=== PATIENT | female | born 1980 ===

== ENCOUNTER 2019-08-23 16:38 | Observation (INO) ==
[2019-08-23] MEDS ORDERED: *HR* HYDROmorphone (PF) 1 MG/ML SYRINGE IVP ONE ×2 (17:04→18:54)
[2019-08-23] MEDS ORDERED: Gadolinium Contrast Agent (WT Based) IV PRN (18:56)
[2019-08-23 19:59] LABS: Basophils % 0.3 %; Eosinophils # 0.2 K/mcL (0.0-0.6); Eosinophils % 1.9 %; Hematocrit 39.7 % (35.3-44.9); Hemoglobin 12.9 g/dL (11.5-15.4); Immature Granulocytes % 0.5 % (0-4); Lymphocytes # 3.2 K/mcL (0.6-4.6); Lymphocytes % 27.6 %; Mean Corpuscular HGB Conc 32.5 g/dL (31.6-35.5); Mean Corpuscular Hemoglobin 32.1 pg (28.0-33.3); Mean Corpuscular Volume 98.8 fL (83.0-100.0); Mean Platelet Volume 12.7 fL (9.4-12.4); Monocytes # 0.7 K/mcL (0.0-1.3); Monocytes % 5.8 %; Neutrophils # 7.3 K/mcL (1.6-8.9); Platelet Count 157 K/mcL (140-400); Red Blood Count 4.02 M/mcL (3.82-4.97); Red Cell Distribution Width 14.1 % (11.5-14.5); Segmented Neutrophils % 63.9 %; White Blood Count 11.5 K/mcL (4.3-11.1)
[2019-08-23 20:19] LABS: BUN/Creatinine Ratio 21 (6-26); Blood Urea Nitrogen 13 mg/dL (6-20); Calcium 9.8 mg/dL (8.6-10.3); Carbon Dioxide 28 mEq/L (23-29); Chloride 102 mEq/L (98-107); Glucose 215 mg/dL (70-105); Osmolality,Calculated 295 (280-300); Potassium 4.2 mEq/L (3.5-5.1); Sodium 139 mEq/L (136-145); eGFR For African Americans > 60 (> 60); eGFR For Non-African Americans > 60 (> 60)
[2019-08-23] MEDS ORDERED: diazePAM 10 MG/2 ML SYRINGE IVP ONE (21:14)
[2019-08-24] MEDS ORDERED: *HR* HYDROmorphone (PF) 1 MG/ML SYRINGE IVP PRN (05:34)
[2019-08-24 06:36] LABS: Bilirubin,Urine Small (Negative); Blood,Urine Negative (Negative); Clarity,Urine Cloudy (Clear); Color,Urine Dark Yellow (Yellow); Glucose,Urine (UA) 100 mg/dL (Normal); Ketones,Urine Negative (Negative); Leukocyte Esterase,Urine Moderate (Negative); Nitrite,Urine Negative (Negative); PH,Urine 5.5 pH Units (5.0-8.0); Protein,Urine Trace mg/dL (Neg-Trace); Specific Gravity,Urine > 1.030 (1.010-1.025); Urobilinogen,Urine Normal (Normal)
[2019-08-24 06:38] LABS: Bacteria,Urine Moderate per hpf (None-Few); Hyaline Casts,Urine Few per lpf (None-Few); Squamous Epithelial Cell,Urine Many per lpf (None-Few); WBC,Urine 15-30 per hpf (0-3)
[2019-08-24 06:47] LABS: Calcium Oxalate Crystals,Urine Present
[2019-08-24] MEDS ORDERED: *HR* Dextrose 50 % in Water (Syg) 50 ML SYRINGE IVP PRN (07:28)
[2019-08-24] MEDS ORDERED: D5% in Water 1,000 ML IVC PRN (07:28)
[2019-08-24] MEDS ORDERED: Dextrose Gel 15 GM/37.5 ML TUBE PO PRN ×2 (07:28)
[2019-08-24] MEDS ORDERED: Ondansetron 4 MG/2 ML VIAL IVP PRN (07:30)
[2019-08-24] MEDS ORDERED: Naloxone 0.4 MG/ML INJ IVP PRN (07:30)
[2019-08-24] MEDS: Aspirin Enteric Coated 81 MG Tablet PO SCH (08:53)
[2019-08-24] MEDS: Lisinopril 20 MG TABLET PO SCH (08:54)
[2019-08-24] MEDS: Cholecalciferol (D-3) 1,000 UNIT (25MCG) TABLET PO SCH (08:54)
[2019-08-24] MEDS: Metoprolol XL (24 HR) Succ 50 MG TAB.ER.24H PO SCH ×2 (08:54→20:49)
[2019-08-24] MEDS: Famotidine 20 MG TABLET PO SCH ×2 (08:54→16:23)
[2019-08-24] MEDS: amLODIPine 5 MG TABLET PO SCH (08:54)
[2019-08-24] MEDS: *HR* HYDROcodone/Acet 5/325 mg TABLET PO PRN ×2 (08:55→19:56)
[2019-08-24] MEDS: Insulin LISPRO 300 UNITS/3 ML VIAL SQ SCH ×4 (09:02→20:48)
[2019-08-24] MEDS: Orphenadrine 100 MG TABLET.ER PO SCH ×2 (12:55→20:49)
[2019-08-24] MEDS: *HR* HYDROmorphone (PF) 1 MG/ML SYRINGE IVP PRN ×2 (13:03→20:52)
[2019-08-24] MEDS: *HR* Heparin 5,000 UNIT/ML VIAL SQ SCH (16:23)
[2019-08-24] MEDS: Insulin DETEMIR 100 UNIT/ML X5UNITS SQ SCH (20:48)
[2019-08-24] MEDS: Divalproex (24 HR) 500 MG TABLET PO SCH (20:49)
[2019-08-24] MEDS: RisperiDAL 3 MG TABLET PO SCH (20:49)
[2019-08-24] MEDS: Nicotine 21 MG PATCH.TD24 TD SCH (21:32)
[2019-08-25] MEDS: *HR* Heparin 5,000 UNIT/ML VIAL SQ SCH ×2 (06:13→19:45)
[2019-08-25] MEDS: *HR* HYDROmorphone (PF) 1 MG/ML SYRINGE IVP PRN (06:54)
[2019-08-25] MEDS: Nicotine 21 MG PATCH.TD24 TD SCH (07:57)
[2019-08-25] MEDS: Aspirin Enteric Coated 81 MG Tablet PO SCH (07:58)
[2019-08-25] MEDS: Cholecalciferol (D-3) 1,000 UNIT (25MCG) TABLET PO SCH (07:58)
[2019-08-25] MEDS: Lisinopril 20 MG TABLET PO SCH (07:58)
[2019-08-25] MEDS: Famotidine 20 MG TABLET PO SCH ×2 (07:58→15:42)
[2019-08-25] MEDS: Orphenadrine 100 MG TABLET.ER PO SCH ×2 (07:58→19:46)
[2019-08-25] MEDS: Metoprolol XL (24 HR) Succ 50 MG TAB.ER.24H PO SCH ×2 (07:59→19:45)
[2019-08-25] MEDS: amLODIPine 5 MG TABLET PO SCH (07:59)
[2019-08-25] MEDS: LOXAPINE SUCCINATE 20 MG PO SCH (07:59)
[2019-08-25] MEDS: *HR* HYDROcodone/Acet 5/325 mg TABLET PO PRN ×2 (08:01→15:42)
[2019-08-25] MEDS: Insulin LISPRO 300 UNITS/3 ML VIAL SQ SCH ×7 (08:08→20:49)
[2019-08-25 11:46] LABS: Hematocrit 30.6 % (35.3-44.9); Hemoglobin 10.6 g/dL (11.5-15.4); Mean Corpuscular HGB Conc 34.6 g/dL (31.6-35.5); Mean Corpuscular Hemoglobin 32.4 pg (28.0-33.3); Mean Corpuscular Volume 93.6 fL (83.0-100.0); Mean Platelet Volume 13.3 fL (9.4-12.4); Platelet Count 121 K/mcL (140-400); Red Blood Count 3.27 M/mcL (3.82-4.97); Red Cell Distribution Width 14.6 % (11.5-14.5); White Blood Count 8.1 K/mcL (4.3-11.1)
[2019-08-25 12:06] LABS: Calcium 9.8 mg/dL (8.6-10.3); Potassium 4.4 mEq/L (3.5-5.1)
[2019-08-25] MEDS: 0.9 % Sodium Chloride 1,000 ML IVC SCH (12:37)
[2019-08-25] MEDS: Ibuprofen 600 MG TABLET PO PRN (17:58)
[2019-08-25] MEDS: RisperiDAL 3 MG TABLET PO SCH (19:45)
[2019-08-25] MEDS: Melatonin 3 MG TABLET PO SCH (19:46)
[2019-08-25] MEDS: Divalproex (24 HR) 500 MG TABLET PO SCH (19:46)
[2019-08-25] MEDS: Gabapentin 400 MG CAPSULE PO SCH (19:46)
[2019-08-25] MEDS: Insulin DETEMIR 100 UNIT/ML X5UNITS SQ SCH (20:49)
[2019-08-26] MEDS: 0.9 % Sodium Chloride 1,000 ML IVC SCH ×2 (01:01→12:12)
[2019-08-26 02:20] LABS: Basophils % 0.2 %; Eosinophils # 0.2 K/mcL (0.0-0.6); Eosinophils % 2.8 %; Hematocrit 29.4 % (35.3-44.9); Hemoglobin 9.4 g/dL (11.5-15.4); Immature Granulocytes % 0.3 % (0-4); Lymphocytes # 2.3 K/mcL (0.6-4.6); Lymphocytes % 39.1 %; Mean Corpuscular Hemoglobin 31.3 pg (28.0-33.3); Mean Platelet Volume 13.5 fL (9.4-12.4); Monocytes # 0.4 K/mcL (0.0-1.3); Monocytes % 6.4 %; Platelet Count 105 K/mcL (140-400); Red Cell Distribution Width 14.5 % (11.5-14.5); Segmented Neutrophils % 51.2 %; White Blood Count 5.8 K/mcL (4.3-11.1)
[2019-08-26 02:37] LABS: BUN/Creatinine Ratio 36 (6-26); Blood Urea Nitrogen 36 mg/dL (6-20); Calcium 9.3 mg/dL (8.6-10.3); Carbon Dioxide 28 mEq/L (23-29); Chloride 100 mEq/L (98-107); Glucose 195 mg/dL (70-105); Osmolality,Calculated 296 (280-300); Potassium 4.1 mEq/L (3.5-5.1); Sodium 136 mEq/L (136-145); eGFR For African Americans > 60 (> 60); eGFR For Non-African Americans > 60 (> 60)
[2019-08-26] MEDS: *HR* HYDROcodone/Acet 5/325 mg TABLET PO PRN ×3 (06:00→18:15)
[2019-08-26] MEDS: *HR* Heparin 5,000 UNIT/ML VIAL SQ SCH ×2 (06:00→17:42)
[2019-08-26] MEDS: Orphenadrine 100 MG TABLET.ER PO SCH ×2 (08:29→21:09)
[2019-08-26] MEDS: Aspirin Enteric Coated 81 MG Tablet PO SCH (08:29)
[2019-08-26] MEDS: Metoprolol XL (24 HR) Succ 50 MG TAB.ER.24H PO SCH ×2 (08:29→21:08)
[2019-08-26] MEDS: Nicotine 21 MG PATCH.TD24 TD SCH ×2 (08:30→08:39)
[2019-08-26] MEDS: Famotidine 20 MG TABLET PO SCH ×2 (08:30→16:07)
[2019-08-26] MEDS: Cholecalciferol (D-3) 1,000 UNIT (25MCG) TABLET PO SCH (08:30)
[2019-08-26] MEDS: Insulin LISPRO 300 UNITS/3 ML VIAL SQ SCH ×7 (08:31→21:13)
[2019-08-26] MEDS: LOXAPINE SUCCINATE 20 MG PO SCH (08:39)
[2019-08-26] MEDS: amLODIPine 5 MG TABLET PO SCH (08:45)
[2019-08-26] MEDS: Lisinopril 20 MG TABLET PO SCH (08:45)
[2019-08-26] MEDS: Melatonin 3 MG TABLET PO SCH (21:08)
[2019-08-26] MEDS: Gabapentin 400 MG CAPSULE PO SCH (21:08)
[2019-08-26] MEDS: RisperiDAL 3 MG TABLET PO SCH (21:08)
[2019-08-26] MEDS: Divalproex (24 HR) 500 MG TABLET PO SCH (21:09)
[2019-08-26] MEDS: Insulin DETEMIR 100 UNIT/ML X5UNITS SQ SCH (21:14)
[2019-08-27] MEDS: *HR* HYDROcodone/Acet 5/325 mg TABLET PO PRN ×2 (02:43→14:42)
[2019-08-27] MEDS: 0.9 % Sodium Chloride 1,000 ML IVC SCH (02:43)
[2019-08-27] MEDS: *HR* Heparin 5,000 UNIT/ML VIAL SQ SCH (05:16)
[2019-08-27] MEDS: Ibuprofen 600 MG TABLET PO PRN (05:21)
[2019-08-27 06:47] LABS: BUN/Creatinine Ratio 27 (6-26); Blood Urea Nitrogen 20 mg/dL (6-20); Calcium 9.5 mg/dL (8.6-10.3); Carbon Dioxide 30 mEq/L (23-29); Chloride 101 mEq/L (98-107); Glucose 199 mg/dL (70-105); Osmolality,Calculated 294 (280-300); Potassium 4.2 mEq/L (3.5-5.1); Sodium 138 mEq/L (136-145); eGFR For African Americans > 60 (> 60); eGFR For Non-African Americans > 60 (> 60)
[2019-08-27] MEDS: Metoprolol XL (24 HR) Succ 50 MG TAB.ER.24H PO SCH (07:55)
[2019-08-27] MEDS: Nicotine 21 MG PATCH.TD24 TD SCH (07:55)
[2019-08-27] MEDS: Orphenadrine 100 MG TABLET.ER PO SCH (07:56)
[2019-08-27] MEDS: Famotidine 20 MG TABLET PO SCH ×2 (07:56→14:41)
[2019-08-27] MEDS: Cholecalciferol (D-3) 1,000 UNIT (25MCG) TABLET PO SCH (07:56)
[2019-08-27] MEDS: Lisinopril 20 MG TABLET PO SCH (07:56)
[2019-08-27] MEDS: amLODIPine 5 MG TABLET PO SCH (07:56)
[2019-08-27] MEDS: Aspirin Enteric Coated 81 MG Tablet PO SCH (07:56)
[2019-08-27] MEDS: Insulin LISPRO 300 UNITS/3 ML VIAL SQ SCH ×4 (07:57→12:08)
[2019-08-27 12:00] VITALS: BP 144/87
[2019-08-27] MEDS: LOXAPINE SUCCINATE 20 MG PO SCH (14:33)
== END 2019-08-27 16:44 ==
LOC: EMEROOARM 16:38 → 3NENU 16:38 → SUATTDRO 08-24 03:50 → 3NENU 08-24 04:43
PROVIDERS: ADMIT Student in an Organized Health Care Education/Training Program; ATTEND Internal Medicine

== ENCOUNTER 2019-09-13 09:45 | Inpatient (IN) ==
[2019-09-13] MEDS ORDERED: 0.9 % Sodium Chloride 1,000 ML IVC ONE (10:25)
[2019-09-13] MEDS ORDERED: *HR* FentaNYL (PF) 100 MCG/2 ML VIAL IVP ONE (10:26)
[2019-09-13] MEDS ORDERED: Ondansetron ODT 4 MG TAB.RAPDIS SL ONE (10:26)
[2019-09-13] MEDS ORDERED: *HR* HYDROcodone/Acet 5/325 mg TABLET PO ONE ×2 (11:16→15:28)
[2019-09-13 11:38] LABS: Hematocrit 25.7 % (35.3-44.9); Hemoglobin 8.4 g/dL (11.5-15.4); Mean Corpuscular HGB Conc 32.7 g/dL (31.6-35.5); Mean Corpuscular Hemoglobin 31.8 pg (28.0-33.3); Mean Corpuscular Volume 97.3 fL (83.0-100.0); Platelet Count 146 K/mcL (140-400); Red Blood Count 2.64 M/mcL (3.82-4.97); Red Cell Distribution Width 17.4 % (11.5-14.5); White Blood Count 6.3 K/mcL (4.3-11.1)
[2019-09-13 11:59] LABS: BUN/Creatinine Ratio 10 (6-26); Blood Urea Nitrogen 6 mg/dL (6-20); Calcium 9.2 mg/dL (8.6-10.3); Carbon Dioxide 26 mEq/L (23-29); Chloride 103 mEq/L (98-107); Glucose 160 mg/dL (70-105); Osmolality,Calculated 289 (280-300); Potassium 3.7 mEq/L (3.5-5.1); Sodium 139 mEq/L (136-145); eGFR For African Americans > 60 (> 60); eGFR For Non-African Americans > 60 (> 60)
[2019-09-13 12:00] LABS: Troponin I < 0.03 ng/mL (< 0.04)
[2019-09-13 12:30] LABS: Bilirubin,Urine Negative (Negative); Blood,Urine Negative (Negative); Clarity,Urine Clear (Clear); Color,Urine Yellow (Yellow); Glucose,Urine (UA) Normal (Normal); Ketones,Urine Negative (Negative); Leukocyte Esterase,Urine Negative (Negative); Nitrite,Urine Negative (Negative); PH,Urine 6.5 pH Units (5.0-8.0); Protein,Urine Negative (Neg-Trace); Specific Gravity,Urine 1.013 (1.010-1.025); Urobilinogen,Urine Normal (Normal)
[2019-09-13] MEDS ORDERED: Isovue-370 500 ML BOTTLE IVP ONE ×2 (14:10→14:51)
[2019-09-13 16:10] LABS: Basophils % 0.2 %; Eosinophils % 0.4 %; Hematocrit 27.6 % (35.3-44.9); Hemoglobin 8.5 g/dL (11.5-15.4); Immature Granulocytes % 0.7 % (0-4); Lymphocytes # 1.4 K/mcL (0.6-4.6); Lymphocytes % 25.4 %; Mean Corpuscular HGB Conc 30.8 g/dL (31.6-35.5); Mean Corpuscular Hemoglobin 31.4 pg (28.0-33.3); Mean Corpuscular Volume 101.8 fL (83.0-100.0); Mean Platelet Volume 11.1 fL (9.4-12.4); Monocytes # 0.4 K/mcL (0.0-1.3); Monocytes % 7.6 %; Neutrophils # 3.6 K/mcL (1.6-8.9); Platelet Count 137 K/mcL (140-400); Red Blood Count 2.71 M/mcL (3.82-4.97); Red Cell Distribution Width 17.5 % (11.5-14.5); Segmented Neutrophils % 65.7 %; White Blood Count 5.4 K/mcL (4.3-11.1)
[2019-09-13] MEDS ORDERED: Clindamycin 600 MG/50 ML 600 MG/50 ML IV.SOLN IVPB ONE (16:52)
[2019-09-13] MEDS ORDERED: Vancomycin (wt based) 1,000 MG VIAL IV ONE (16:52)
[2019-09-13 16:53] LABS: C-Reactive Protein 41 mg/L (Less than 10)
[2019-09-13] MEDS ORDERED: Gentamicin 480 MG in 0.9 % Sodium Chloride 100 ML IVPB ONE (16:53)
[2019-09-13] MEDS ORDERED: *HR* Promethazine 25 MG/ML VIAL IVP PRN (17:02)
[2019-09-13] MEDS ORDERED: Acetaminophen 325 MG TABLET PO PRN (17:02)
[2019-09-13] MEDS ORDERED: Naloxone 0.4 MG/ML INJ IVP PRN (17:02)
[2019-09-13] MEDS ORDERED: *HR* Dextrose 50 % in Water (Syg) 50 ML SYRINGE IVP PRN (17:24)
[2019-09-13] MEDS ORDERED: D5% in Water 1,000 ML IVC PRN (17:24)
[2019-09-13] MEDS ORDERED: Dextrose Gel 15 GM/37.5 ML TUBE PO PRN ×2 (17:24)
[2019-09-13] MEDS ORDERED: Gadolinium Contrast Agent (WT Based) IV PRN (17:33)
[2019-09-13] MEDS ORDERED: diazePAM 5 MG TABLET PO ONE (20:13)
[2019-09-13] MEDS: Gabapentin 400 MG CAPSULE PO SCH (20:57)
[2019-09-13] MEDS: Divalproex (24 HR) 500 MG TABLET PO SCH (20:57)
[2019-09-13] MEDS: RisperiDAL 3 MG TABLET PO SCH (20:57)
[2019-09-13] MEDS: Famotidine 20 MG TABLET PO SCH (20:57)
[2019-09-13] MEDS: Metoprolol XL (24 HR) Succ 50 MG TAB.ER.24H PO SCH (20:57)
[2019-09-13] MEDS: Melatonin 3 MG TABLET PO SCH (20:57)
[2019-09-13] MEDS: Orphenadrine 100 MG TABLET.ER PO SCH (20:57)
[2019-09-13] MEDS: *HR* Heparin 5,000 UNIT/ML VIAL SQ SCH (20:58)
[2019-09-13] MEDS: Insulin DETEMIR 100 UNIT/ML X5UNITS SQ SCH (20:59)
[2019-09-13] MEDS: *HR* OxyCODONE Immed Rel 5 MG TABLET PO PRN (22:30)
[2019-09-13] MEDS: *HR* HYDROcodone/Acet 5/325 mg TABLET PO PRN (23:44)
[2019-09-14] MEDS: Clindamycin 600 MG/50 ML 600 MG/50 ML IV.SOLN IVPB SCH ×3 (00:42→16:39)
[2019-09-14 01:31] LABS: Basophils % 0.2 %; Eosinophils # 0.1 K/mcL (0.0-0.6); Eosinophils % 1.2 %; Hematocrit 24.9 % (35.3-44.9); Hemoglobin 7.8 g/dL (11.5-15.4); Immature Granulocytes % 0.6 % (0-4); Lymphocytes # 1.2 K/mcL (0.6-4.6); Lymphocytes % 23.9 %; Mean Corpuscular HGB Conc 31.3 g/dL (31.6-35.5); Mean Platelet Volume 11.8 fL (9.4-12.4); Monocytes # 0.4 K/mcL (0.0-1.3); Monocytes % 8.2 %; Neutrophils # 3.4 K/mcL (1.6-8.9); Platelet Count 134 K/mcL (140-400); Red Blood Count 2.44 M/mcL (3.82-4.97); Red Cell Distribution Width 17.4 % (11.5-14.5); Segmented Neutrophils % 65.9 %; White Blood Count 5.1 K/mcL (4.3-11.1)
[2019-09-14] MEDS: Cefepime HCl 1,000 MG in Water for inj. (sterile) 10 ML IVP SCH ×2 (01:44→13:02)
[2019-09-14 01:50] LABS: BUN/Creatinine Ratio 11 (6-26); Blood Urea Nitrogen 9 mg/dL (6-20); Calcium 9.1 mg/dL (8.6-10.3); Carbon Dioxide 27 mEq/L (23-29); Chloride 103 mEq/L (98-107); Glucose 170 mg/dL (70-105); Osmolality,Calculated 289 (280-300); Potassium 3.7 mEq/L (3.5-5.1); Sodium 138 mEq/L (136-145); eGFR For African Americans > 60 (> 60); eGFR For Non-African Americans > 60 (> 60)
[2019-09-14 02:14] LABS: Folate 6.2 ng/mL (3.0-16.0)
[2019-09-14] MEDS: *HR* Heparin 5,000 UNIT/ML VIAL SQ SCH ×2 (03:09→17:24)
[2019-09-14] MEDS: *HR* OxyCODONE Immed Rel 5 MG TABLET PO PRN ×3 (05:22→19:31)
[2019-09-14] MEDS ORDERED: Cefepime HCl 1,000 MG in Water for inj. (sterile) 10 ML IVP SCH (06:00)
[2019-09-14] MEDS ORDERED: Cyanocobalamin (B-12) 1,000 MCG/ML VIAL SQ ONE (07:42)
[2019-09-14] MEDS: Insulin LISPRO 300 UNITS/3 ML VIAL SQ SCH ×3 (08:04→16:38)
[2019-09-14] MEDS: Cholecalciferol (D-3) 1,000 UNIT (25MCG) TABLET PO SCH (08:15)
[2019-09-14] MEDS: Metoprolol XL (24 HR) Succ 50 MG TAB.ER.24H PO SCH ×2 (08:15→21:15)
[2019-09-14] MEDS: Famotidine 20 MG TABLET PO SCH ×2 (08:15→21:16)
[2019-09-14] MEDS: Orphenadrine 100 MG TABLET.ER PO SCH ×2 (08:15→21:16)
[2019-09-14] MEDS: Spironolactone 25 MG TABLET PO SCH (08:16)
[2019-09-14] MEDS: Aspirin Enteric Coated 81 MG Tablet PO SCH (08:16)
[2019-09-14] MEDS: Lisinopril 20 MG TABLET PO SCH (08:16)
[2019-09-14] MEDS ORDERED: LOXAPINE SUCCINATE 20 MG PO SCH (09:00)
[2019-09-14 09:33] LABS: Immature Reticulocyte % 24.5 % (11.0-38.0); Retculocyte # 0.24 M/mcL (0.05-0.10); Reticulocyte % 10.1 % (1.6-2.8)
[2019-09-14 09:46] LABS: INR 1.2; Prothrombin Time 14.1 Seconds (9.4-12.1)
[2019-09-14 09:48] LABS: Activated Partial Thrombo Time 31.7 Seconds (26.0-36.0)
[2019-09-14 09:54] LABS: Bilirubin,Direct 0.4 mg/dL (0.0-0.2); Bilirubin,Indirect 1.2 mg/dL (0.0-1.0); Bilirubin,Total 1.6 mg/dL (0.3-1.0)
[2019-09-14] MEDS: *HR* HYDROcodone/Acet 5/325 mg TABLET PO PRN (17:24)
[2019-09-14] MEDS: RisperiDAL 3 MG TABLET PO SCH (21:15)
[2019-09-14] MEDS: Melatonin 3 MG TABLET PO SCH (21:16)
[2019-09-14] MEDS: Insulin DETEMIR 100 UNIT/ML X5UNITS SQ SCH (21:16)
[2019-09-14] MEDS: Divalproex (24 HR) 500 MG TABLET PO SCH (21:16)
[2019-09-14] MEDS: Gabapentin 400 MG CAPSULE PO SCH (21:19)
[2019-09-15] MEDS: Cefepime HCl 1,000 MG in Water for inj. (sterile) 10 ML IVP SCH ×2 (00:51→17:47)
[2019-09-15] MEDS: Clindamycin 600 MG/50 ML 600 MG/50 ML IV.SOLN IVPB SCH ×3 (00:52→18:44)
[2019-09-15] MEDS: *HR* HYDROcodone/Acet 5/325 mg TABLET PO PRN ×2 (01:44→18:43)
[2019-09-15] MEDS: *HR* Heparin 5,000 UNIT/ML VIAL SQ SCH ×2 (02:00→18:40)
[2019-09-15] MEDS: *HR* OxyCODONE Immed Rel 5 MG TABLET PO PRN ×4 (02:50→21:01)
[2019-09-15 05:43] LABS: Basophils % 0.2 %; Eosinophils # 0.1 K/mcL (0.0-0.6); Eosinophils % 2.4 %; Hematocrit 23.3 % (35.3-44.9); Hemoglobin 7.3 g/dL (11.5-15.4); Immature Granulocytes % 0.5 % (0-4); Lymphocytes # 1.2 K/mcL (0.6-4.6); Mean Corpuscular HGB Conc 31.3 g/dL (31.6-35.5); Mean Corpuscular Hemoglobin 31.5 pg (28.0-33.3); Mean Corpuscular Volume 100.4 fL (83.0-100.0); Mean Platelet Volume 11.4 fL (9.4-12.4); Monocytes # 0.3 K/mcL (0.0-1.3); Monocytes % 7.8 %; Neutrophils # 2.6 K/mcL (1.6-8.9); Platelet Count 119 K/mcL (140-400); Red Blood Count 2.32 M/mcL (3.82-4.97); Red Cell Distribution Width 17.2 % (11.5-14.5); Segmented Neutrophils % 61.1 %; White Blood Count 4.3 K/mcL (4.3-11.1)
[2019-09-15 06:06] LABS: BUN/Creatinine Ratio 22 (6-26); Blood Urea Nitrogen 14 mg/dL (6-20); Calcium 9.1 mg/dL (8.6-10.3); Carbon Dioxide 28 mEq/L (23-29); Chloride 102 mEq/L (98-107); Glucose 122 mg/dL (70-105); Osmolality,Calculated 286 (280-300); Potassium 4.2 mEq/L (3.5-5.1); Sodium 137 mEq/L (136-145); eGFR For African Americans > 60 (> 60); eGFR For Non-African Americans > 60 (> 60)
[2019-09-15] MEDS: Insulin LISPRO 300 UNITS/3 ML VIAL SQ SCH ×2 (07:14→18:40)
[2019-09-15] MEDS: Lisinopril 20 MG TABLET PO SCH (07:26)
[2019-09-15] MEDS: Spironolactone 25 MG TABLET PO SCH (07:26)
[2019-09-15] MEDS: Orphenadrine 100 MG TABLET.ER PO SCH ×2 (07:26→17:48)
[2019-09-15] MEDS: Famotidine 20 MG TABLET PO SCH (07:26)
[2019-09-15] MEDS: Metoprolol XL (24 HR) Succ 50 MG TAB.ER.24H PO SCH (07:26)
[2019-09-15] MEDS: Cholecalciferol (D-3) 1,000 UNIT (25MCG) TABLET PO SCH (07:27)
[2019-09-15] MEDS: Aspirin Enteric Coated 81 MG Tablet PO SCH (07:27)
[2019-09-15] MEDS ORDERED: Cyanocobalamin (B-12) 1,000 MCG/ML VIAL SQ SCH (09:00)
[2019-09-15] MEDS ORDERED: Acetaminophen IV 1,000 MG/100 ML INFUS..BTL ONE (09:03)
[2019-09-15] MEDS ORDERED: *HR* FentaNYL (PF) 100 MCG/2 ML VIAL ONE (09:13)
[2019-09-15] MEDS ORDERED: *HR* Midazolam HCl 2 MG/2 ML VIAL ONE (09:13)
[2019-09-15] MEDS ORDERED: Lidocaine HCL 4 ML Topical Solution (Laryng-O-Jet Kit Sterile Pak) TP ONE (09:13)
[2019-09-15] MEDS ORDERED: *HR* Propofol 200 MG/20 ML VIAL IVP ONE (09:13)
[2019-09-15] MEDS ORDERED: *HR* Rocuronium Bromide 50 MG/5 ML VIAL ONE (09:18)
[2019-09-15] MEDS ORDERED: *HR* Succinylcholine 200 MG/10 ML VIAL IVP ONE (09:18)
[2019-09-15] MEDS ORDERED: Lidocaine -MPF 2% 2 ML VIAL ONE (09:18)
[2019-09-15] MEDS ORDERED: Bacitracin 50,000 UNIT, Polymyxin B Sulfate 500,000 UNIT, Sodium Chloride IRRigation 1,... IR ONE (09:45)
[2019-09-15] MEDS ORDERED: Vancomycin 1,000 MG VIAL ONE (11:32)
[2019-09-15] MEDS ORDERED: *HR* Promethazine 25 MG/ML VIAL IVP PRN ×2 (12:32→16:31)
[2019-09-15] MEDS ORDERED: *HR* Labetalol 20 MG/4 ML SYRINGE IVP PRN (12:32)
[2019-09-15] MEDS ORDERED: Ondansetron 4 MG/2 ML VIAL IVP ONE (12:32)
[2019-09-15] MEDS ORDERED: *HR* HYDROMORPHONE 2 MG/ML VIAL ONE (12:41)
[2019-09-15] MEDS: *HR* HYDROmorphone (PF) 1 MG/ML SYRINGE IVP PRN ×2 (13:38→13:47)
[2019-09-15] MEDS ORDERED: Ringers Solution, Lactated 1,000 ML ONE (14:14)
[2019-09-15] MEDS ORDERED: Naloxone 0.4 MG/ML INJ IVP PRN (15:14)
[2019-09-15] MEDS ORDERED: Ondansetron 4 MG/2 ML VIAL IVP PRN (15:14)
[2019-09-15] MEDS ORDERED: *HR* Dextrose 50 % in Water (Syg) 50 ML SYRINGE IVP PRN (16:27)
[2019-09-15] MEDS ORDERED: D5% in Water 1,000 ML IVC PRN (16:27)
[2019-09-15] MEDS ORDERED: Dextrose Gel 15 GM/37.5 ML TUBE PO PRN ×2 (16:27)
[2019-09-15] MEDS: Gabapentin 400 MG CAPSULE PO SCH (20:12)
[2019-09-15] MEDS: RisperiDAL 3 MG TABLET PO SCH (20:12)
[2019-09-15] MEDS: Melatonin 3 MG TABLET PO SCH (20:12)
[2019-09-15] MEDS: Divalproex (24 HR) 500 MG TABLET PO SCH (20:13)
[2019-09-15] MEDS: Insulin DETEMIR 100 UNIT/ML X5UNITS SQ SCH (20:13)
[2019-09-16] MEDS: *HR* OxyCODONE Immed Rel 5 MG TABLET PO PRN ×4 (00:52→16:40)
[2019-09-16] MEDS: Clindamycin 600 MG/50 ML 600 MG/50 ML IV.SOLN IVPB SCH ×2 (00:53→07:48)
[2019-09-16] MEDS: *HR* HYDROcodone/Acet 5/325 mg TABLET PO PRN ×3 (02:46→19:49)
[2019-09-16] MEDS ORDERED: *HR* HYDROmorphone (PF) 1 MG/ML SYRINGE IVP ONE (03:01)
[2019-09-16] MEDS: *HR* Heparin 5,000 UNIT/ML VIAL SQ SCH ×2 (04:39→17:49)
[2019-09-16 05:17] LABS: Hematocrit 22.8 % (35.3-44.9); Hemoglobin 7.5 g/dL (11.5-15.4); Mean Corpuscular HGB Conc 32.9 g/dL (31.6-35.5); Mean Corpuscular Hemoglobin 31.3 pg (28.0-33.3); Mean Platelet Volume 11.3 fL (9.4-12.4); Platelet Count 122 K/mcL (140-400); Red Cell Distribution Width 16.7 % (11.5-14.5); White Blood Count 4.8 K/mcL (4.3-11.1)
[2019-09-16] MEDS: Orphenadrine 100 MG TABLET.ER PO SCH ×2 (05:17→17:47)
[2019-09-16] MEDS: Cefepime HCl 1,000 MG in Water for inj. (sterile) 10 ML IVP SCH (05:17)
[2019-09-16 05:34] LABS: BUN/Creatinine Ratio 13 (6-26); Blood Urea Nitrogen 8 mg/dL (6-20); Calcium 9.1 mg/dL (8.6-10.3); Carbon Dioxide 29 mEq/L (23-29); Chloride 102 mEq/L (98-107); Glucose 122 mg/dL (70-105); Osmolality,Calculated 284 (280-300); Potassium 3.9 mEq/L (3.5-5.1); Sodium 137 mEq/L (136-145); eGFR For African Americans > 60 (> 60); eGFR For Non-African Americans > 60 (> 60)
[2019-09-16] MEDS: Insulin LISPRO 300 UNITS/3 ML VIAL SQ SCH ×3 (07:31→17:47)
[2019-09-16] MEDS: Metoprolol XL (24 HR) Succ 50 MG TAB.ER.24H PO SCH (07:45)
[2019-09-16] MEDS: Lisinopril 20 MG TABLET PO SCH (07:45)
[2019-09-16] MEDS: Cholecalciferol (D-3) 1,000 UNIT (25MCG) TABLET PO SCH (07:49)
[2019-09-16] MEDS: Aspirin Enteric Coated 81 MG Tablet PO SCH (07:49)
[2019-09-16] MEDS: Cyanocobalamin (B-12) 1,000 MCG/ML VIAL SQ SCH (07:50)
[2019-09-16] MEDS: Spironolactone 25 MG TABLET PO SCH (07:50)
[2019-09-16] MEDS ORDERED: *HR* Glimepiride 4 MG TABLET PO SCH (09:00)
[2019-09-16 10:57] LABS: Basophils % 0.2 %; Eosinophils # 0.1 K/mcL (0.0-0.6); Eosinophils % 1.5 %; Immature Granulocytes % 0.4 % (0-4); Lymphocytes % 21.7 %; Monocytes # 0.4 K/mcL (0.0-1.3); Monocytes % 7.3 %; Neutrophils # 3.3 K/mcL (1.6-8.9); Segmented Neutrophils % 68.9 %
[2019-09-16] MEDS: Cefepime HCl 2,000 MG in 0.9 % Sodium Chloride Mini Bag 100 ML IVPB SCH (16:41)
[2019-09-16] MEDS: Insulin DETEMIR 100 UNIT/ML X5UNITS SQ SCH (21:18)
[2019-09-16] MEDS: Divalproex (24 HR) 500 MG TABLET PO SCH (21:18)
[2019-09-16] MEDS: RisperiDAL 3 MG TABLET PO SCH (21:19)
[2019-09-16] MEDS: Melatonin 3 MG TABLET PO SCH (21:19)
[2019-09-16] MEDS: Gabapentin 400 MG CAPSULE PO SCH (21:19)
[2019-09-17 00:59] LABS: Basophils % 0.2 %; Eosinophils # 0.1 K/mcL (0.0-0.6); Eosinophils % 2.4 %; Hemoglobin 7.2 g/dL (11.5-15.4); Immature Granulocytes % 0.2 % (0-4); Lymphocytes # 1.4 K/mcL (0.6-4.6); Lymphocytes % 30.7 %; Mean Corpuscular HGB Conc 31.3 g/dL (31.6-35.5); Mean Corpuscular Hemoglobin 31.4 pg (28.0-33.3); Mean Corpuscular Volume 100.4 fL (83.0-100.0); Mean Platelet Volume 11.7 fL (9.4-12.4); Monocytes # 0.4 K/mcL (0.0-1.3); Monocytes % 9.4 %; Neutrophils # 2.6 K/mcL (1.6-8.9); Platelet Count 116 K/mcL (140-400); Red Blood Count 2.29 M/mcL (3.82-4.97); Red Cell Distribution Width 17.3 % (11.5-14.5); Segmented Neutrophils % 57.1 %; White Blood Count 4.6 K/mcL (4.3-11.1)
[2019-09-17 01:12] LABS: BUN/Creatinine Ratio 15 (6-26); Blood Urea Nitrogen 8 mg/dL (6-20); Calcium 9.3 mg/dL (8.6-10.3); Carbon Dioxide 29 mEq/L (23-29); Chloride 100 mEq/L (98-107); Glucose 118 mg/dL (70-105); Osmolality,Calculated 285 (280-300); Potassium 3.7 mEq/L (3.5-5.1); Sodium 138 mEq/L (136-145); eGFR For African Americans > 60 (> 60); eGFR For Non-African Americans > 60 (> 60)
[2019-09-17] MEDS: Cefepime HCl 2,000 MG in 0.9 % Sodium Chloride Mini Bag 100 ML IVPB SCH ×3 (01:13→15:29)
[2019-09-17] MEDS: *HR* OxyCODONE Immed Rel 5 MG TABLET PO PRN ×2 (01:19→09:13)
[2019-09-17] MEDS: *HR* Heparin 5,000 UNIT/ML VIAL SQ SCH ×2 (04:52→17:14)
[2019-09-17] MEDS: Orphenadrine 100 MG TABLET.ER PO SCH ×2 (04:55→17:14)
[2019-09-17] MEDS: *HR* HYDROcodone/Acet 5/325 mg TABLET PO PRN ×3 (04:59→19:59)
[2019-09-17] MEDS: Insulin LISPRO 300 UNITS/3 ML VIAL SQ SCH ×3 (09:12→17:14)
[2019-09-17 09:13] LABS: Hepatitis B Surface Antigen Nonreactive (Nonreactive)
[2019-09-17] MEDS: Metoprolol XL (24 HR) Succ 50 MG TAB.ER.24H PO SCH (09:13)
[2019-09-17] MEDS: Aspirin Enteric Coated 81 MG Tablet PO SCH (09:13)
[2019-09-17] MEDS: Spironolactone 25 MG TABLET PO SCH (09:14)
[2019-09-17] MEDS: Cyanocobalamin (B-12) 1,000 MCG/ML VIAL SQ SCH (09:14)
[2019-09-17] MEDS: Lisinopril 20 MG TABLET PO SCH (09:14)
[2019-09-17] MEDS: Cholecalciferol (D-3) 1,000 UNIT (25MCG) TABLET PO SCH (09:14)
[2019-09-17 09:44] LABS: Hepatitis A Antibody IgM Nonreactive (Nonreactive); Hepatitis C Virus Antibody Nonreactive (Nonreactive)
[2019-09-17 09:45] LABS: Hepatitis B Core IgM Nonreactive (Nonreactive)
[2019-09-17 16:51] LABS: Acinetobacter baumannii by PCR Not Detected (Not Detect); Candida albicans by PCR Not Detected (Not Detect); Candida glabrata by PCR Not Detected (Not Detect); Candida krusei by PCR Not Detected (Not Detect); Candida parapsilosis by PCR Not Detected (Not Detect); Candida tropicalis by PCR Not Detected (Not Detect); Enterobacter cloacae Cmplx PCR Not Detected (Not Detect); Enterobacteriaceae by PCR Not Detected (Not Detect); Enterococcus by PCR Not Detected (Not Detect); Escherichia coli by PCR Not Detected (Not Detect); Klebsiella oxytoca by PCR Not Detected (Not Detect); Klebsiella pneumoniae by PCR Not Detected (Not Detect); Proteus by PCR Not Detected (Not Detect); Pseudomonas aeruginosa by PCR Not Detected (Not Detect); Serratia marcescens by PCR Not Detected (Not Detect); Staphylococcus aureus by PCR Not Detected (Not Detect); Staphylococcus by PCR Not Detected (Not Detect); Streptococcus agalactiae(B)PCR Not Detected (Not Detect); Streptococcus by PCR Not Detected (Not Detect); Streptococcus pneumoniae PCR Not Detected (Not Detect); Streptococcus pyogenes (A) PCR Not Detected (Not Detect); blaKPC Carbapenem-Resist Gene Not Detected (Not Detect); mecA Methicillin-Resist Gene Not Detected (Not Detect); vanA/B Vancomycin-Resist Genes Not Detected (Not Detect)
[2019-09-17] MEDS: Divalproex (24 HR) 500 MG TABLET PO SCH (19:58)
[2019-09-17] MEDS: Melatonin 3 MG TABLET PO SCH (19:58)
[2019-09-17] MEDS: Sennosides/Docusate Sodium TABLET PO SCH (19:59)
[2019-09-17] MEDS: RisperiDAL 3 MG TABLET PO SCH (19:59)
[2019-09-17] MEDS: Gabapentin 400 MG CAPSULE PO SCH (19:59)
[2019-09-17] MEDS: Insulin DETEMIR 100 UNIT/ML X5UNITS SQ SCH (20:02)
[2019-09-18] MEDS: Cefepime HCl 2,000 MG in 0.9 % Sodium Chloride Mini Bag 100 ML IVPB SCH ×3 (00:15→16:16)
[2019-09-18 02:09] LABS: Basophils % 0.2 %; Eosinophils # 0.1 K/mcL (0.0-0.6); Eosinophils % 3.5 %; Hematocrit 23.3 % (35.3-44.9); Hemoglobin 7.5 g/dL (11.5-15.4); Immature Granulocytes % 0.5 % (0-4); Lymphocytes # 1.2 K/mcL (0.6-4.6); Lymphocytes % 29.1 %; Mean Corpuscular HGB Conc 32.2 g/dL (31.6-35.5); Mean Corpuscular Hemoglobin 31.6 pg (28.0-33.3); Mean Corpuscular Volume 98.3 fL (83.0-100.0); Monocytes # 0.3 K/mcL (0.0-1.3); Monocytes % 8.2 %; Neutrophils # 2.4 K/mcL (1.6-8.9); Platelet Count 119 K/mcL (140-400); Red Blood Count 2.37 M/mcL (3.82-4.97); Red Cell Distribution Width 17.2 % (11.5-14.5); Segmented Neutrophils % 58.5 %
[2019-09-18 02:21] LABS: BUN/Creatinine Ratio 15 (6-26); Blood Urea Nitrogen 10 mg/dL (6-20); Carbon Dioxide 32 mEq/L (23-29); Chloride 100 mEq/L (98-107); Glucose 129 mg/dL (70-105); Osmolality,Calculated 291 (280-300); Potassium 3.8 mEq/L (3.5-5.1); Sodium 140 mEq/L (136-145); eGFR For African Americans > 60 (> 60); eGFR For Non-African Americans > 60 (> 60)
[2019-09-18] MEDS: *HR* HYDROcodone/Acet 5/325 mg TABLET PO PRN ×3 (05:09→19:39)
[2019-09-18] MEDS: Orphenadrine 100 MG TABLET.ER PO SCH ×2 (05:09→16:55)
[2019-09-18] MEDS: *HR* Heparin 5,000 UNIT/ML VIAL SQ SCH ×2 (05:10→16:55)
[2019-09-18] MEDS: Insulin LISPRO 300 UNITS/3 ML VIAL SQ SCH ×3 (07:40→16:16)
[2019-09-18] MEDS: Metoprolol XL (24 HR) Succ 50 MG TAB.ER.24H PO SCH (07:49)
[2019-09-18] MEDS: Sennosides/Docusate Sodium TABLET PO SCH ×2 (07:50→20:06)
[2019-09-18] MEDS: Cyanocobalamin (B-12) 1,000 MCG/ML VIAL SQ SCH (07:50)
[2019-09-18] MEDS: Spironolactone 25 MG TABLET PO SCH (07:50)
[2019-09-18] MEDS: Aspirin Enteric Coated 81 MG Tablet PO SCH (07:50)
[2019-09-18] MEDS: Lisinopril 20 MG TABLET PO SCH (07:50)
[2019-09-18] MEDS: Cholecalciferol (D-3) 1,000 UNIT (25MCG) TABLET PO SCH (07:50)
[2019-09-18] MEDS: *HR* OxyCODONE Immed Rel 5 MG TABLET PO PRN ×3 (08:57→21:40)
[2019-09-18] MEDS: Gabapentin 400 MG CAPSULE PO SCH (20:06)
[2019-09-18] MEDS: Melatonin 3 MG TABLET PO SCH (20:06)
[2019-09-18] MEDS: Divalproex (24 HR) 500 MG TABLET PO SCH (20:06)
[2019-09-18] MEDS: RisperiDAL 3 MG TABLET PO SCH (20:06)
[2019-09-18] MEDS: Insulin DETEMIR 100 UNIT/ML X5UNITS SQ SCH (20:14)
[2019-09-19] MEDS: Cefepime HCl 2,000 MG in 0.9 % Sodium Chloride Mini Bag 100 ML IVPB SCH ×3 (01:38→15:55)
[2019-09-19] MEDS: *HR* HYDROcodone/Acet 5/325 mg TABLET PO PRN (04:28)
[2019-09-19 06:00] LABS: Basophils % 0.3 %; Eosinophils # 0.1 K/mcL (0.0-0.6); Eosinophils % 3.9 %; Hematocrit 24.1 % (35.3-44.9); Hemoglobin 7.4 g/dL (11.5-15.4); Immature Granulocytes % 0.8 % (0-4); Lymphocytes # 1.2 K/mcL (0.6-4.6); Lymphocytes % 33.6 %; Mean Corpuscular HGB Conc 30.7 g/dL (31.6-35.5); Mean Corpuscular Hemoglobin 31.2 pg (28.0-33.3); Mean Corpuscular Volume 101.7 fL (83.0-100.0); Mean Platelet Volume 11.9 fL (9.4-12.4); Monocytes # 0.3 K/mcL (0.0-1.3); Monocytes % 7.7 %; Platelet Count 121 K/mcL (140-400); Red Blood Count 2.37 M/mcL (3.82-4.97); Segmented Neutrophils % 53.7 %; White Blood Count 3.6 K/mcL (4.3-11.1)
[2019-09-19] MEDS: Orphenadrine 100 MG TABLET.ER PO SCH ×2 (06:07→17:16)
[2019-09-19 06:20] LABS: BUN/Creatinine Ratio 16 (6-26); Blood Urea Nitrogen 9 mg/dL (6-20); Calcium 8.8 mg/dL (8.6-10.3); Carbon Dioxide 30 mEq/L (23-29); Chloride 100 mEq/L (98-107); Glucose 107 mg/dL (70-105); Osmolality,Calculated 287 (280-300); Potassium 3.7 mEq/L (3.5-5.1); Sodium 139 mEq/L (136-145); eGFR For African Americans > 60 (> 60); eGFR For Non-African Americans > 60 (> 60)
[2019-09-19] MEDS: *HR* Heparin 5,000 UNIT/ML VIAL SQ SCH ×2 (06:57→17:16)
[2019-09-19] MEDS: Insulin LISPRO 300 UNITS/3 ML VIAL SQ SCH ×3 (09:06→17:15)
[2019-09-19] MEDS: *HR* OxyCODONE Immed Rel 5 MG TABLET PO PRN ×4 (09:20→22:43)
[2019-09-19] MEDS: Sennosides/Docusate Sodium TABLET PO SCH ×2 (09:21→20:02)
[2019-09-19] MEDS: Metoprolol XL (24 HR) Succ 50 MG TAB.ER.24H PO SCH (09:21)
[2019-09-19] MEDS: Spironolactone 25 MG TABLET PO SCH (09:21)
[2019-09-19] MEDS: Cholecalciferol (D-3) 1,000 UNIT (25MCG) TABLET PO SCH (09:21)
[2019-09-19] MEDS: Aspirin Enteric Coated 81 MG Tablet PO SCH (09:21)
[2019-09-19] MEDS: Lisinopril 20 MG TABLET PO SCH (09:21)
[2019-09-19] MEDS: Cyanocobalamin (B-12) 1,000 MCG/ML VIAL SQ SCH (09:21)
[2019-09-19] MEDS: Divalproex (24 HR) 500 MG TABLET PO SCH (20:02)
[2019-09-19] MEDS: Melatonin 3 MG TABLET PO SCH (20:03)
[2019-09-19] MEDS: Gabapentin 400 MG CAPSULE PO SCH (20:03)
[2019-09-19] MEDS: RisperiDAL 3 MG TABLET PO SCH (20:03)
[2019-09-19] MEDS: Insulin DETEMIR 100 UNIT/ML X5UNITS SQ SCH (22:43)
[2019-09-20] MEDS: Cefepime HCl 2,000 MG in 0.9 % Sodium Chloride Mini Bag 100 ML IVPB SCH ×2 (00:35→08:59)
[2019-09-20 01:42] LABS: Basophils % 0.3 %; Eosinophils # 0.1 K/mcL (0.0-0.6); Eosinophils % 2.8 %; Hematocrit 23.8 % (35.3-44.9); Hemoglobin 7.6 g/dL (11.5-15.4); Immature Granulocytes % 0.9 % (0-4); Lymphocytes # 0.9 K/mcL (0.6-4.6); Lymphocytes % 24.4 %; Mean Corpuscular HGB Conc 31.9 g/dL (31.6-35.5); Mean Corpuscular Hemoglobin 31.3 pg (28.0-33.3); Mean Corpuscular Volume 97.9 fL (83.0-100.0); Monocytes # 0.3 K/mcL (0.0-1.3); Monocytes % 7.7 %; Neutrophils # 2.3 K/mcL (1.6-8.9); Platelet Count 132 K/mcL (140-400); Red Blood Count 2.43 M/mcL (3.82-4.97); Red Cell Distribution Width 16.9 % (11.5-14.5); Segmented Neutrophils % 63.9 %; White Blood Count 3.5 K/mcL (4.3-11.1)
[2019-09-20 01:56] LABS: BUN/Creatinine Ratio 15 (6-26); Blood Urea Nitrogen 9 mg/dL (6-20); Calcium 9.3 mg/dL (8.6-10.3); Carbon Dioxide 32 mEq/L (23-29); Chloride 99 mEq/L (98-107); Glucose 168 mg/dL (70-105); Osmolality,Calculated 291 (280-300); Potassium 3.9 mEq/L (3.5-5.1); Sodium 139 mEq/L (136-145); eGFR For African Americans > 60 (> 60); eGFR For Non-African Americans > 60 (> 60)
[2019-09-20] MEDS: *HR* OxyCODONE Immed Rel 5 MG TABLET PO PRN ×4 (03:27→19:11)
[2019-09-20] MEDS: *HR* Heparin 5,000 UNIT/ML VIAL SQ SCH ×2 (06:29→17:02)
[2019-09-20] MEDS: Orphenadrine 100 MG TABLET.ER PO SCH ×2 (06:29→17:02)
[2019-09-20] MEDS: Spironolactone 25 MG TABLET PO SCH (08:50)
[2019-09-20] MEDS: Aspirin Enteric Coated 81 MG Tablet PO SCH (08:50)
[2019-09-20] MEDS: Lisinopril 20 MG TABLET PO SCH (08:50)
[2019-09-20] MEDS: Cholecalciferol (D-3) 1,000 UNIT (25MCG) TABLET PO SCH (08:50)
[2019-09-20] MEDS: Sennosides/Docusate Sodium TABLET PO SCH ×2 (08:50→20:47)
[2019-09-20] MEDS: Metoprolol XL (24 HR) Succ 50 MG TAB.ER.24H PO SCH (08:50)
[2019-09-20] MEDS: Cyanocobalamin (B-12) 1,000 MCG/ML VIAL SQ SCH (08:53)
[2019-09-20] MEDS: Insulin LISPRO 300 UNITS/3 ML VIAL SQ SCH ×3 (09:33→17:03)
[2019-09-20] MEDS ORDERED: Aminoglycoside Consult 1 EACH MC ONE (10:21)
[2019-09-20] MEDS: *HR* HYDROcodone/Acet 5/325 mg TABLET PO PRN ×2 (11:16→23:15)
[2019-09-20] MEDS: levoFLOXacin 750 MG/150 ML 750 MG/150 ML BAG IVPB SCH (11:27)
[2019-09-20] MEDS: Acetaminophen 325 MG TABLET PO PRN (14:55)
[2019-09-20] MEDS: Gabapentin 400 MG CAPSULE PO SCH (20:47)
[2019-09-20] MEDS: Melatonin 3 MG TABLET PO SCH (20:47)
[2019-09-20] MEDS: Insulin DETEMIR 100 UNIT/ML X5UNITS SQ SCH (20:48)
[2019-09-20] MEDS: Divalproex (24 HR) 500 MG TABLET PO SCH (20:48)
[2019-09-20] MEDS: RisperiDAL 3 MG TABLET PO SCH (20:48)
[2019-09-21 01:11] LABS: Basophils % 0.3 %; Eosinophils # 0.1 K/mcL (0.0-0.6); Eosinophils % 3.1 %; Hematocrit 24.5 % (35.3-44.9); Hemoglobin 7.5 g/dL (11.5-15.4); Immature Granulocytes % 0.8 % (0-4); Lymphocytes # 1.2 K/mcL (0.6-4.6); Lymphocytes % 33.1 %; Mean Corpuscular HGB Conc 30.6 g/dL (31.6-35.5); Mean Corpuscular Hemoglobin 30.9 pg (28.0-33.3); Mean Corpuscular Volume 100.8 fL (83.0-100.0); Mean Platelet Volume 11.7 fL (9.4-12.4); Monocytes # 0.3 K/mcL (0.0-1.3); Monocytes % 8.7 %; Neutrophils # 1.9 K/mcL (1.6-8.9); Platelet Count 127 K/mcL (140-400); Red Blood Count 2.43 M/mcL (3.82-4.97); Red Cell Distribution Width 17.2 % (11.5-14.5); White Blood Count 3.6 K/mcL (4.3-11.1)
[2019-09-21 01:33] LABS: BUN/Creatinine Ratio 15 (6-26); Blood Urea Nitrogen 9 mg/dL (6-20); Calcium 9.3 mg/dL (8.6-10.3); Carbon Dioxide 29 mEq/L (23-29); Chloride 100 mEq/L (98-107); Glucose 125 mg/dL (70-105); Osmolality,Calculated 286 (280-300); Potassium 3.9 mEq/L (3.5-5.1); Sodium 138 mEq/L (136-145); eGFR For African Americans > 60 (> 60); eGFR For Non-African Americans > 60 (> 60)
[2019-09-21] MEDS: *HR* OxyCODONE Immed Rel 5 MG TABLET PO PRN ×3 (04:46→13:23)
[2019-09-21] MEDS: Orphenadrine 100 MG TABLET.ER PO SCH (04:51)
[2019-09-21] MEDS: *HR* Heparin 5,000 UNIT/ML VIAL SQ SCH (04:51)
[2019-09-21] MEDS: Insulin LISPRO 300 UNITS/3 ML VIAL SQ SCH ×2 (08:15→11:39)
[2019-09-21] MEDS: levoFLOXacin 750 MG/150 ML 750 MG/150 ML BAG IVPB SCH (09:17)
[2019-09-21] MEDS: Lisinopril 20 MG TABLET PO SCH (09:18)
[2019-09-21] MEDS: Cholecalciferol (D-3) 1,000 UNIT (25MCG) TABLET PO SCH (09:18)
[2019-09-21] MEDS: Aspirin Enteric Coated 81 MG Tablet PO SCH (09:18)
[2019-09-21] MEDS: Sennosides/Docusate Sodium TABLET PO SCH (09:18)
[2019-09-21] MEDS: Metoprolol XL (24 HR) Succ 50 MG TAB.ER.24H PO SCH (09:18)
[2019-09-21] MEDS: Spironolactone 25 MG TABLET PO SCH (09:19)
[2019-09-21 11:09] VITALS: BP 127/85
[2019-09-21] MEDS: Acetaminophen 325 MG TABLET PO PRN (12:27)
== END 2019-09-21 15:30 | disposition home or self-care (01) | DRG 23 ==
LOC: EMEROOARM 09:45 → 3NENU 09:45 → SUATTDRO 17:51 → 3NENU 18:21 → SUATTDRO 09-14 12:59
PROVIDERS: ADMIT Internal Medicine; ATTEND Family Medicine